=== PATIENT | female | born 1990 | race Caucasian/White ===

== ENCOUNTER 2016-08-02 09:59 | Emergency (ER) | payer BC ==
[~2016-08-02] VITALS: Ht 162.6 cm; Wt 84.8 kg
--- NOTE | 2016-08-02 10:32 | EKG ---
[facility] [address] [place] [address] Test Date: 2016-08-02 Test Time: 10:07:01 Pat Name: KAYLA CHUNG Department: Room: Gender: F [employer]: : 1990 Requested By: Vicki SEE Order Number: [id number] Reading MD: Flores Cash Measurements Intervals [place] Rate: 118 P: 45 [place]: 128 QRS: 16 QRSD: 72 T: 9 QT: 322 QTc: 454 Interpretive Statements SINUS TACHYCARDIA LEFT ATRIAL ABNORMALITY RI6.01 Unconfirmed report No previous ECG available for comparison Electronically Signed On 08-05-2016 15:51:05 CDT by Flores Cash
--- NOTE | 2016-08-02 10:35 | PHYS DOC ---
Past Medical History Past Medical History: GERD Past Surgical History: No Surgical History Alcohol Use: Occasionally Drug Use: None Adult General Chief Complaint Chief Complaint: Palpitations HPI HPI Patient is a 26 year old female approx 21 wk IUP who presents with palpitations. States she was at work, and began to feel palpitations. She had her heart rate checked and it was in the 140s, so she came for evaluation. States she has mild rhinorrhea and sore throat over the past few days. She is only taking Tylenol and no other [id number] medicines. She denies lightheadedness, dyspnea, chest pain, abdominal pain, nausea or vomiting, fever or chills, diarrhea, dysuria. States she has normal eating and drinking recently. Denies any changes in caffeine intake. Review of Systems Review of Systems Constitutional: Denies fever or chills [] Eyes: Denies change in visual acuity, redness, or eye pain [] HENT: Has nasal congestion and sore throat [] Respiratory: Denies cough or shortness of breath [] Cardiovascular: No additional information not addressed in HPI [] GI: Denies abdominal pain, nausea, vomiting, bloody stools or diarrhea [] : Denies dysuria or hematuria [] Musculoskeletal: Denies back pain or joint pain [] Integument: Denies rash or skin lesions [] Neurologic: Denies headache, focal weakness or sensory changes [] Endocrine: Denies polyuria or polydipsia [] Current Medications Current Medications Current Medications Medications (Trade) Dose Ordered Sig/Karsten Start Time Stop Time Status Last Admin Dose Admin Sodium Chloride (Iv Sodium Chloride 0.9% 1000ml Bag) 1,000 ml @ 1,000 mls/hr 1X ONCE 08/02/16 10:45 08/02/16 11:44 08/02/16 10:33 1,000 MLS/HR Allergies Allergies Allergies Coded Allergies Type Severity Reaction Last Updated Verified No Known Drug Allergies 08/02/16 No Physical Exam Physical Exam Constitutional: Well developed, well nourished, no acute distress, non-toxic appearance. [] HENT: Normocephalic, atraumatic, bilateral external ears normal, oropharynx moist, no oral exudates, nose normal. [] Eyes: PERRLA, EOMI, conjunctiva normal, no discharge. [] Neck: Normal range of motion, no tenderness, supple, no stridor. [] Cardiovascular: Regular tachycardia [] Lungs & Thorax: Bilateral breath sounds clear to auscultation [] Abdomen: Bowel sounds normal, soft, no tenderness. Gravid at umbilicus. [] Skin: Warm, dry, no erythema, no rash. [] Back: No tenderness, no CVA tenderness. [] Extremities: No tenderness, ROM intact, no edema. [] Neurologic: Alert and oriented X 3, normal motor function, normal sensory function, no focal deficits noted. [] Psychologic: Affect normal, judgement normal, mood normal. [] Current Patient Data Vital Signs Vital Signs Date Time Temp Pulse Resp B/P Pulse Ox O2 Delivery O2 Flow Rate FiO2 08/02/16 11:03 120 20 124/76 100 08/02/16 10:02 98.2 Room Air 98.2 Lab Values Laboratory Tests Test 08/02/16 10:20 White Blood Count 14.1x10^3/uL (4.0-11.0) H Red Blood Count 3.79x10^6/uL (3.50-5.40) Hemoglobin 11.1g/dL (12.0-15.5) L Hematocrit 32.4% (36.0-47.0) L Mean Corpuscular Volume 85fL (79-100) Mean Corpuscular Hemoglobin 29pg (25-35) Mean Corpuscular Hemoglobin Concent 34g/dL (31-37) Red Cell Distribution Width 12.9% (11.5-14.5) Platelet Count 173x10^3/uL (140-400) Neutrophils (%) (Auto) 80% (31-73) H Lymphocytes (%) (Auto) 11% (24-48) L Monocytes (%) (Auto) 8% (0-9) Eosinophils (%) (Auto) 1% (0-3) Basophils (%) (Auto) 0% (0-3) Neutrophils # (Auto) 11.3x10^3uL (1.8-7.7) H Lymphocytes # (Auto) 1.5x10^3/uL (1.0-4.8) Monocytes # (Auto) 1.1x10^3/uL (0.0-1.1) Eosinophils # (Auto) 0.1x10^3/uL (0.0-0.7) Basophils # (Auto) 0.1x10^3/uL (0.0-0.2) Sodium Level 139mmol/L (136-145) Potassium Level 4.0mmol/L (3.5-5.1) Chloride Level 104mmol/L (98-107) Carbon Dioxide Level 24mmol/L (21-32) Anion Gap 11 (6-14) Blood Urea Nitrogen 8mg/dL (7-20) Creatinine 0.5mg/dL (0.6-1.0) L Estimated GFR (Cockcroft-Gault) 151.6 Glucose Level 76mg/dL (70-99) Calcium Level 8.7mg/dL (8.5-10.1) Total Bilirubin 0.2mg/dL (0.2-1.0) Direct Bilirubin 0.1mg/dL (0.0-0.2) Aspartate Amino Transferase (AST) 14U/L (15-37) L Alanine Aminotransferase (ALT) 26U/L (14-59) Alkaline Phosphatase 68U/L (46-116) Total Protein 7.1g/dL (6.4-8.2) Albumin 3.0g/dL (3.4-5.0) L Laboratory Tests 08/02/16 10:20 Laboratory Tests 08/02/16 10:20 EKG EKG EKG as interpreted by me as sinus tachycardia, rate 118, no ST-T changes, normal intervals, no ectopy Course & Med Decision Making Course & Med Decision Making Pertinent Labs and Imaging studies reviewed. (See chart for details) Laboratory evaluation is unremarkable. Heart rate is improved after IV fluids. She is feeling well and would like to go home. Return precautions given. She understands and agrees with plan. Dragon Disclaimer Dragon Disclaimer This electronic medical record was generated, in whole or in part, using a voice recognition dictation system. Departure Departure Impression: Primary Impression: Viral upper respiratory infection Additional Impression: Tachycardia Disposition: 01 HOME, SELF-CARE Condition: STABLE Patient Instructions: Nonspecific Tachycardia Additional Instructions: Drink liquids to stay hydrated. Follow-up with your OB doctor or primary care doctor within 3 days. Return for any concerns. Problem Qualifiers Vicki SEE MD Aug 02, 2016 10:35
[2016-08-02 10:38] LABS: BASO # 0.1 x10^3/uL (0.0-0.2); BASO % 0 % (0-3); EOS % 1 % (0-3); HEMATOCRIT 32.4 % (36.0-47.0); HEMOGLOBIN 11.1 g/dL (12.0-15.5); LYMPH # 1.5 x10^3/uL (1.0-4.8); LYMPH % 11 % (24-48); MEAN CORPUSCULAR HEMOGLOBIN 29 pg (25-35); MEAN CORPUSCULAR HGB CONC 34 g/dL (31-37); MEAN CORPUSCULAR VOLUME 85 fL (79-100); MONO % 8 % (0-9); NEUT % 80 % (31-73); PLATELET COUNT 173 x10^3/uL (140-400); RED BLOOD COUNT 3.79 x10^6/uL (3.50-5.40); RED CELL DISTRIBUTION WIDTH 12.9 % (11.5-14.5); WHITE BLOOD COUNT 14.1 x10^3/uL (4.0-11.0)
[2016-08-02] MEDS ORDERED: IV NORMAL SALINE 1000ML BAG 1,000 ML IV ONE (10:45)
[2016-08-02 10:46] LABS: CALCIUM 8.7 mg/dL (8.5-10.1); CREATININE 0.5 mg/dL (0.6-1.0); GFR 151.6
[2016-08-02 10:51] LABS: DIRECT BILIRUBIN 0.1 mg/dL (0.0-0.2); TOTAL BILIRUBIN 0.2 mg/dL (0.2-1.0); TOTAL PROTEIN 7.1 g/dL (6.4-8.2)
[2016-08-02 11:30] VITALS: BP 116/59
== END 2016-08-02 11:31 | disposition home or self-care (01) ==
LOC: ER 09:59
DX: O99.512 Diseases of the respiratory system complicating pregnancy, second trimester (principal); J06.9 Acute upper respiratory infection, unspecified; O26.892 Other specified pregnancy related conditions, second trimester; R00.0 Tachycardia, unspecified; R00.2 Palpitations; K21.9 Gastro-esophageal reflux disease without esophagitis; Z3A.21 21 weeks gestation of pregnancy
CPT/HCPCS: 36415; 80048; 80076; 85027; 93005; 96360; 99285; J7030